=== PATIENT | male | born 1975 | race Caucasian/White ===

== ENCOUNTER 2020-09-11 12:57 | Observation (INO) ==
[2020-09-11] MEDS ORDERED: *HR* HYDROmorphone (PF) 1 MG/ML SYRINGE IVP ONE (13:07)
[2020-09-11] MEDS ORDERED: 0.9 % Sodium Chloride 1,000 ML IVC ONE ×2 (13:07→14:09)
[2020-09-11] MEDS ORDERED: Ondansetron 4 MG/2 ML VIAL IVP ONE (13:07)
[2020-09-11 13:44] LABS: Basophils # 0.1 K/mcL (0.0-0.2); Basophils % 0.9 %; Eosinophils # 0.7 K/mcL (0.0-0.6); Eosinophils % 4.6 %; Hematocrit 46.3 % (37.5-50.1); Hemoglobin 14.8 g/dL (12.9-16.9); Immature Granulocytes % 0.4 % (0-4); Lymphocytes # 2.6 K/mcL (0.6-4.6); Lymphocytes % 18.6 %; Mean Corpuscular Hemoglobin 29.2 pg (28.0-33.3); Mean Corpuscular Volume 91.5 fL (83.0-100.0); Mean Platelet Volume 9.2 fL (9.4-12.4); Monocytes % 7.3 %; Neutrophils # 9.7 K/mcL (1.6-8.9); Platelet Count 464 K/mcL (140-400); Red Blood Count 5.06 M/mcL (4.19-5.50); Red Cell Distribution Width 13.5 % (11.5-14.5); Segmented Neutrophils % 68.2 %; White Blood Count 14.2 K/mcL (4.3-11.1)
[2020-09-11 13:49] LABS: Prothrombin Time 11.7 Seconds (9.4-12.1)
[2020-09-11 14:07] LABS: Alanine Aminotransferase 25 Units/L (7-52); Albumin 4.3 g/dL (3.5-5.7); Albumin/Globulin Ratio 1.2 (1.1-2.2); Alkaline Phosphatase 70 Units/L (34-104); Aspartate Amino Transferase 18 Units/L (13-39); BUN/Creatinine Ratio 15 (6-26); Bilirubin,Indirect 0.3 mg/dL (0.0-1.0); Bilirubin,Total 0.3 mg/dL (0.3-1.0); Blood Urea Nitrogen 18 mg/dL (6-20); Calcium 9.6 mg/dL (8.6-10.3); Carbon Dioxide 23 mEq/L (23-29); Chloride 104 mEq/L (98-107); Globulin 3.7 g/dL (2.4-3.5); Glucose 120 mg/dL (70-105); Lipase 67 Units/L (11-82); Osmolality,Calculated 287 (280-300); Potassium 3.8 mEq/L (3.5-5.1); Sodium 137 mEq/L (136-145); Troponin I < 0.03 ng/mL (< 0.04); eGFR For African Americans > 60 (> 60); eGFR For Non-African Americans > 60 (> 60)
[2020-09-11 14:45] LABS: Bilirubin,Urine Negative (Negative); Blood,Urine Negative (Negative); Clarity,Urine Clear (Clear); Color,Urine Light-Yellow (Yellow); Glucose,Urine (UA) Normal (Normal); Ketones,Urine Negative (Negative); Leukocyte Esterase,Urine Negative (Negative); Nitrite,Urine Negative (Negative); PH,Urine 6.5 pH Units (5.0-8.0); Protein,Urine Trace mg/dL (Neg-Trace); Specific Gravity,Urine 1.029 (1.010-1.025); Urobilinogen,Urine Normal (Normal)
[2020-09-11] MEDS ORDERED: Ketorolac 15 MG/ML VIAL IVP ONE (14:48)
[2020-09-11] MEDS ORDERED: Ketorolac 30 MG/ML VIAL IVP PRN (15:40)
[2020-09-11] MEDS ORDERED: Naloxone 0.4 MG/ML INJ IVP PRN (15:40)
[2020-09-11] MEDS ORDERED: *HR* HYDROcodone/Acet 5/325 mg TABLET PO PRN (15:40)
[2020-09-11] MEDS ORDERED: Ondansetron 4 MG/2 ML VIAL IVP PRN (15:45)
[2020-09-11] MEDS ORDERED: Acetaminophen 325 MG TABLET PO PRN (16:18)
[2020-09-11] MEDS: *HR* OxyCODONE Immed Rel 5 MG TABLET PO PRN (17:27)
[2020-09-11] MEDS: Ringers Solution, Lactated 1,000 ML IVC SCH (17:28)
[2020-09-12] MEDS: *HR* OxyCODONE Immed Rel 5 MG TABLET PO PRN (00:36)
[2020-09-12] MEDS: Ringers Solution, Lactated 1,000 ML IVC SCH ×2 (00:38→09:00)
[2020-09-12 00:40] LABS: Basophils # 0.1 K/mcL (0.0-0.2); Basophils % 0.8 %; Eosinophils # 0.7 K/mcL (0.0-0.6); Eosinophils % 6.9 %; Hematocrit 40.6 % (37.5-50.1); Immature Granulocytes % 0.2 % (0-4); Lymphocytes # 2.9 K/mcL (0.6-4.6); Lymphocytes % 29.6 %; Mean Corpuscular HGB Conc 32.5 g/dL (31.6-35.5); Mean Corpuscular Hemoglobin 29.9 pg (28.0-33.3); Mean Corpuscular Volume 91.9 fL (83.0-100.0); Mean Platelet Volume 9.3 fL (9.4-12.4); Monocytes % 9.7 %; Neutrophils # 5.1 K/mcL (1.6-8.9); Platelet Count 364 K/mcL (140-400); Red Blood Count 4.42 M/mcL (4.19-5.50); Red Cell Distribution Width 13.5 % (11.5-14.5); Segmented Neutrophils % 52.8 %; White Blood Count 9.8 K/mcL (4.3-11.1)
[2020-09-12 00:41] LABS: Hemoglobin 13.2 g/dL (12.9-16.9)
[2020-09-12 00:58] LABS: BUN/Creatinine Ratio 14 (6-26); Blood Urea Nitrogen 15 mg/dL (6-20); Calcium 8.2 mg/dL (8.6-10.3); Carbon Dioxide 22 mEq/L (23-29); Chloride 109 mEq/L (98-107); Glucose 102 mg/dL (70-105); Osmolality,Calculated 287 (280-300); Potassium 3.7 mEq/L (3.5-5.1); Sodium 138 mEq/L (136-145); eGFR For African Americans > 60 (> 60); eGFR For Non-African Americans > 60 (> 60)
[2020-09-12 06:34] VITALS: BP 105/64
== END 2020-09-12 10:36 | disposition home or self-care (01) ==
LOC: 3ANU 12:57 → EMEROOARM 12:57 → 3ANU 16:36
PROVIDERS: ADMIT General Practice; ATTEND General Practice